=== PATIENT | female | born 1930 | race Caucasian/White ===

== ENCOUNTER → 2017-03-06 | Outpatient (CLI) | payer MEDICARE, BC ==
[~2017-03-06] MED LIST: ADULT LOW DOSE81 MG PO; B-121000 MC1 PO; ESTRACE 0.5MG0.5 MG OR; FISH OIL 1,2001 EACH PO; FLOVENT DI50 MCG/ACT IH; FUROSEMIDE 20MG20 MG FT; KLOR-CON 1010 ME1 PO; LOSARTAN POTASS25 MG PO; MIRALAX(PO17 GM/1 PA PO; NIFEDIPINE ER90 MG PO; OMEPRAZOLE20 MG PO; PLAVIX 75MG TAB75 MG PO; SV FLAXSEED OI1 EACH PO; SYNTHROID0.112 M2 PO; VITAMIN D32000 UNI1 PO
--- NOTE | 2017-03-06 15:03 | RADIOLOGY REPORT PS360 ---
US [id number] HISTORY: GAGANDEEP FLANK PAIN ORDERING PHYSICIAN: Janet Busby MD PATIENT AGE: 86 years COMPARISON: None FINDINGS: RIGHT KIDNEY:Unremarkable. Normal size and echogenicity. No hydronephrosis. 9.4 x 4 x 5.7 cm. Mild cortical thinning LEFT KIDNEY:Unremarkable. No hydronephrosis. Normal size and echogenicity. 10 x 5 x 6 cm with mild cortical thinning. 1 cm peripelvic cyst OTHER FINDINGS: No other pertinent findings IMPRESSION: No hydronephrosis. Mild bilateral cortical thinning
== END ==
LOC: RAD 10:37
DX: R10.12 Left upper quadrant pain (principal); R10.11 Right upper quadrant pain